=== PATIENT | male | born 1985 | race Caucasian/White ===

== ENCOUNTER 2018-11-16 22:27 | Emergency (ER) | payer SELFPAY ==
[2018-11-16] MEDS ORDERED: CEPHALEXIN 250 MG CAP ONE (23:22)
[2018-11-16] MEDS ORDERED: TETANUS & DIPHTHERIA TOX,ADULT 0.5 ML VIAL ONE (23:23)
[2018-11-16] MEDS ORDERED: LIDOCAINE 1% MPF 30 ML VIAL ONE (23:23)
[2018-11-16] MEDS ORDERED: HYDROCODONE/APAP 7.5/325 MG TAB ONE (23:23)
[2018-11-16] MEDS ORDERED: BUPIVACAINE 0.5% PF 10 ML VIAL ONE (23:23)
--- NOTE | 2018-11-17 00:40 | ER ---
Nurse's Notes [facility] Name: Barrie Arevalo Age: 33 yrs Sex: Male : 1985 Arrival Date: 11/16/2018 Time: 22:29 Bed 5 Private MD: Diagnosis: Laceration with foreign body of right middle finger without damage to nail;Crushing injury of right middle finger Presentation: 11/16 23:00 Presenting complaint: Patient states: Darin from truck fell and crushed 3rd finger on tl2 right hand, appears to have a puncture wound to middle of 3rd right finger, bleeding is controlled. Pt states the finger feels numb. Transition of care: patient was not received from another setting of care. Onset of symptoms was November 16, 2018 at 21:00. Risk Assessment: Do you want to hurt yourself or someone else? Patient reports no desire to harm self or others. Initial Sepsis Screen: Does the patient meet any 2 criteria? No. Patient's initial sepsis screen is negative. Does the patient have a suspected source of infection? No. Patient's initial sepsis screen is negative. Care prior to arrival: None. 23:00 Method Of Arrival: Ambulatory tl2 23:00 Acuity: FABIANA 3 tl2 Triage Assessment: 23:02 General: Appears in no apparent distress. uncomfortable, Behavior is calm, cooperative, tl2 appropriate for age. Pain: Complains of pain in dorsal aspect of middle phalanx of right middle finger, palmar aspect of middle phalanx of right middle finger and palmar aspect of proximal phalanx of right middle finger. Neuro: Level of Consciousness is awake, alert, obeys commands, Oriented to person, place, time, situation. Respiratory: Airway is patent Respiratory effort is even, unlabored, Respiratory pattern is regular, symmetrical. Derm: Skin is pink, warm \T\ dry. Injury Description: Crush injury sustained to palmar aspect of middle phalanx of right middle finger and palmar aspect of proximal phalanx of right middle finger was sustained 1-2 hours ago. Puncture sustained to palmar aspect of middle phalanx of right middle finger and palmar aspect of proximal phalanx of right middle finger is through and through, was sustained 1-2 hours ago. Historical: - Allergies: 23:02 No Known Allergies; tl2 - Home Meds: 23:02 None [Active]; tl2 - PMHx: 23:02 None; tl2 - PSHx: 23:02 None; tl2 - Immunization history:: Adult Immunizations up to date, Last tetanus immunization: < 5 years ago. - Social history:: Smoking status: Patient uses tobacco products, smokes one pack cigarettes per day. - Ebola Screening: : No symptoms or risks identified at this time. Screenin:05 Abuse screen: Denies threats or abuse. Nutritional screening: No deficits noted. tl2 Tuberculosis screening: No symptoms or risk factors identified. Fall Risk None identified. Assessment: 23:05 General: see triage assessment. tl2 11/17 00:00 Reassessment: Patient appears in no apparent distress at this time. Patient and/or tl2 family updated on plan of care and expected duration. Pain level reassessed. Patient is alert, oriented x 3, equal unlabored respirations, skin warm/dry/pink. 01:05 Reassessment: Patient appears in no apparent distress at this time. Patient and/or tl2 family updated on plan of care and expected duration. Pain level reassessed. Patient is alert, oriented x 3, equal unlabored respirations, skin warm/dry/pink. pt verbalized understanding of discharge instructions, need for follow up, wound care and prescription usage. Vital Signs: 11/16 23:02 BP 135 / 99; Pulse 85; Resp 18; Temp 97.7(O); Pulse Ox 100% on R/A; Weight 99.79 kg; tl2 Height 5 ft. 11 in. (180.34 cm); Pain 8/10; 23:02 Body Mass Index 30.68 (99.79 kg, 180.34 cm) tl2 ED Course: 22:29 Patient arrived in ED. es 22:33 Rainer Martin PA is PHCP. cp 22:33 Wellington Amos MD is Attending Physician. cp 22:51 XRAY Hand RIGHT 3 View In Process Unspecified. EDMS 23:01 Triage completed. tl2 23:02 Arm band placed on right wrist. tl2 23:05 Jania Garcia, KEY is Primary Nurse. tl2 23:05 Patient has correct armband on for positive identification. Bed in low position. Call tl2 light in reach. Side rails up X 1. 11/17 00:06 Assist provider with laceration repair on palmar aspect of proximal phalanx of right tl2 middle finger that was 2.5 cm. or less using sutures. Set up tray. Performed by Rainer UGALDE Dressed with Neosporin, Patient tolerated well. 01:05 Patient did not have IV access during this emergency room visit. Dressings: tube gauze tl2 and finger splint. Administered Medications: 11/16 23:23 Drug: Tetanus-Diphtheria Toxoid Adult 0.5 ml {Pc Analyst: [employer]. Exp: tl2 09/03/2020. Lot #: [id number]. } Route: IM; Site: right deltoid; 11/17 01:08 Follow up: Response: No adverse reaction tl2 11/16 23:23 Drug: Lidocaine (1 %) 5 ml Volume: 20 ml; Route: Infiltration; tl2 23:23 Drug: Marcaine (0.5 %) 5 ml Volume: 10 ml; Route: Infiltration; tl2 23:23 Drug: KeFLEX 500 mg Route: PO; tl2 11/17 01:08 Follow up: Response: No adverse reaction tl2 11/16 23:24 Drug: Hydrocodone-Acetaminophen (7.5 mg-325 mg) 1 tabs Route: PO; tl2 11/17 00:20 Follow up: Response: No adverse reaction; Pain is decreased tl2 Outcome: 00:39 Discharge ordered by MD. cabrera 01:05 Discharged to home ambulatory, with family. tl2 01:05 Condition: stable 01:05 Discharge instructions given to patient, family, Instructed on discharge instructions, follow up and referral plans. medication usage, wound care, Demonstrated understanding of instructions, follow-up care, medications, wound care, Prescriptions given X 3. 01:09 Patient left the ED. tl2 Signatures: Dispatcher [employer] Bethany Saez Corey, PA PA cp Knox, Taylor, RN RN tl2
--- NOTE | 2018-11-17 00:40 | EDPHYS ---
Physician Documentation [facility] Name: Barrie Arevalo Age: 33 yrs Sex: Male : 1985 Arrival Date: 11/16/2018 Time: 22:29 Bed 5 Private MD: ED Physician Wellington Amos HPI: 11/16 22:45 This 33 yrs old Male presents to ER via Ambulatory with complaints of hand cp crushed under truck. 22:45 The patient or guardian reports injury, a laceration, irregular, dirty, pain, swelling, cp tenderness. The complaints affect the right middle finger. Context: resulted from a crush injury, car fell from [place]. Onset: The symptoms/episode began/occurred just prior to arrival. Associated signs and symptoms: Pertinent positives: decreased sensation distally, Pertinent negatives: cyanosis distally. Historical: - Allergies: 23:02 No Known Allergies; tl2 - Home Meds: 23:02 None [Active]; tl2 - PMHx: 23:02 None; tl2 - PSHx: 23:02 None; tl2 - Immunization history:: Adult Immunizations up to date, Last tetanus immunization: < 5 years ago. - Social history:: Smoking status: Patient uses tobacco products, smokes one pack cigarettes per day. - Ebola Screening: : No symptoms or risks identified at this time. ROS: 22:50 Constitutional: Negative for body aches, chills, fever, poor PO intake. cp 22:50 Eyes: Negative for injury, pain, redness, and discharge. cp 22:50 ENT: Negative for drainage from ear(s), ear pain, sore throat, difficulty swallowing, difficulty handling secretions. 22:50 Cardiovascular: Negative for chest pain. 22:50 Respiratory: Negative for cough, shortness of breath, wheezing. 22:50 Abdomen/GI: Negative for abdominal pain. 22:50 MS/extremity: Positive for injury or acute deformity, pain, paresthesias, swelling, tenderness, of the right middle finger, Negative for decreased range of motion. 22:50 Skin: Positive for laceration(s), of the right middle finger. 22:50 All other systems are negative. Exam: 23:00 Constitutional: The patient appears in no acute distress, alert, awake, well developed, cp well nourished. 23:00 Head/Face: Normocephalic, atraumatic. cp 23:00 Eyes: Periorbital structures: appear normal, Conjunctiva: normal, Lids and lashes: appear normal, bilaterally. 23:00 ENT: External ear(s): are unremarkable, Nose: is normal, Mouth: is normal, Posterior pharynx: is normal, airway is patent. 23:00 Chest/axilla: Inspection: normal. 23:00 Cardiovascular: Rate: normal. 23:00 Respiratory: the patient does not display signs of respiratory distress, Respirations: normal, no use of accessory muscles, no retractions, no splinting, no tachypnea. 23:00 Abdomen/GI: Inspection: abdomen appears normal. 23:00 Musculoskeletal/extremity: Extremities: grossly normal except: noted in the right middle finger: pain, swelling, tenderness, ROM: full active range of motion, in the right middle finger, Perfusion: the extremity is normally perfused throughout, Sensation intact. Tendon exam: specific tendon testing normal through active and passive range of motion 23:00 Skin: injury, laceration(s), the wound is approximately 3 cm(s), of the middle phalanx richey side right middle finger, the second wound is approximately 1 cm(s), of the dorsal side middle phalanx right middle finger, that can be described as irregular, jagged, with mild bleeding. Vital Signs: 23:02 BP 135 / 99; Pulse 85; Resp 18; Temp 97.7(O); Pulse Ox 100% on R/A; Weight 99.79 kg; tl2 Height 5 ft. 11 in. (180.34 cm); Pain 8/10; 23:02 Body Mass Index 30.68 (99.79 kg, 180.34 cm) tl2 Laceration: 11/17 00:45 Wound Repair of 3cm ( 1.2in ) subcutaneous laceration to palmar aspect of middle cp phalanx of right middle finger. Irregularly shaped.. Distal neuro/vascular/tendon intact. Anesthesia: Digital block administered with 6 mls of Lido/Marcaine. Wound prep: Extensive cleansing by nurse by me, Wound irrigation by me, Wound explored moderately. Skin closed with 6 4-0 Prolene using interrupted sutures and sterile technique. Dressed with Bacitracin, 4x4's, finger splint applied. Patient tolerated well. 00:45 Wound Repair of 1cm ( 0.4in ) subcutaneous laceration to dorsal aspect of middle cp phalanx of right middle finger. Linear shaped.. Distal neuro/vascular/tendon intact. Wound prep: Moderate cleansing by nurse by me, Wound irrigation by me. Skin closed with 2 4-0 Prolene using interrupted sutures and sterile technique. Dressed with Bacitracin, 4x4's. Patient tolerated well. MDM: 11/16 22:34 Patient medically screened. 23:00 Differential diagnosis: dislocation, open fracture, closed fracture, contusion, cp amputation. 11/17 00:38 Data reviewed: vital signs, nurses notes, radiologic studies, plain films, and as a cp result, I will discharge patient. 00:38 Test interpretation: by ED physician or midlevel provider: plain radiologic studies, cp xrays of right hand negative for fracture. Counseling: I had a detailed discussion with the patient and/or guardian regarding: the historical points, exam findings, and any diagnostic results supporting the discharge/admit diagnosis, radiology results, the need for outpatient follow up, a family practitioner, to return to the emergency department if symptoms worsen or persist or if there are any questions or concerns that arise at home. Response to treatment: the patient's symptoms have markedly improved after treatment, and as a result, I will discharge patient. 00:38 ED course: VSS. Pain improved, wound cleaned and closed as noted. Will discharge to home for continued monitoring. 11/16 22:37 Order name: XRAY Hand RIGHT 3 View 11/16 22:37 Order name: Dressing - Wound; Complete Time: 23:01 11/16 22:37 Order name: Gloves, Sterile; Complete Time: 23:01 11/16 22:37 Order name: Setup Suture Tray; Complete Time: 23:01 11/16 22:53 Order name: Wound Care: please cleand and irrigate hand wound; Complete Time: 23:21 cp 11/17 00:10 Order name: Wound dressing: tube guaze; Complete Time: 00:24 cp 11/17 00:10 Order name: Splint - Finger; Complete Time: 00:24 cp Administered Medications: 11/16 23:23 Drug: Tetanus-Diphtheria Toxoid Adult 0.5 ml {Beauty Therapist: [employer]!. Exp: tl2 09/03/2020. Lot #: [id number]. } Route: IM; Site: right deltoid; 11/17 01:08 Follow up: Response: No adverse reaction 2 11/16 23:23 Drug: Lidocaine (1 %) 5 ml Volume: 20 ml; Route: Infiltration; tl2 23:23 Drug: Marcaine (0.5 %) 5 ml Volume: 10 ml; Route: Infiltration; tl2 23:23 Drug: KeFLEX 500 mg Route: PO; 2 11/17 01:08 Follow up: Response: No adverse reaction 2 11/16 23:24 Drug: Hydrocodone-Acetaminophen (7.5 mg-325 mg) 1 tabs Route: PO; 2 11/17 00:20 Follow up: Response: No adverse reaction; Pain is decreased tl2 Disposition: 11/17/18 00:39 Discharged to Home. Impression: Laceration with foreign body of right middle finger without damage to nail, Crushing injury of right middle finger. - Condition is Stable. - Discharge Instructions: Laceration Care, Adult, Crush Injury of the Hand. - Prescriptions for Ibuprofen 800 mg Oral Tablet - take 1 tablet by ORAL route every 8 hours As needed take with food; 30 tablet. Keflex 500 mg Oral Capsule - take 1 capsule by ORAL route every 8 hours for 10 days; 30 capsule. Tramadol 50 mg Oral Tablet - take 1 tablet by ORAL route every 8 hours as needed; 12 tablet. - Medication Reconciliation Form, Thank You Letter, Antibiotic Education, Prescription Opioid Use, Work release form form. - Follow up: Private Physician; When: 2 - 3 days; Reason: Wound Recheck, suture removal in 10-14 days. - Problem is new. - Symptoms have improved. Signatures: Dispatcher [employer] EDMS Rainer Martin PA PA cp Knox, Taylor, RN RN tl2 Corrections: (The following items were deleted from the chart) 01:09 00:39 11/17/2018 00:39 Discharged to Home. Impression: Laceration with foreign body of tl2 right middle finger without damage to nail; Crushing injury of right middle finger. Condition is Stable. Forms are Medication Reconciliation Form, Thank You Letter, Antibiotic Education, Prescription Opioid Use. Follow up: Private Physician; When: 2 - 3 days; Reason: Wound Recheck, suture removal in 10-14 days. Problem is new. Symptoms have improved. cp
--- NOTE | 2018-11-17 07:49 | RAD REPORT ---
EXAM DESCRIPTION: RAD - Hand Right 3 View - 11/16/2018 10:51 pm CLINICAL HISTORY: Right hand pain status post injury FINDINGS: Old fifth metacarpal fracture. No acute fracture or dislocation seen
== END 2018-11-17 01:09 | disposition home or self-care (01) ==
LOC: ER 22:27
PROC: 0JQJ0ZZ Repair Right Hand Subcutaneous Tissue and Fascia, Open Approach (ICD-10-PCS; principal; 2018-11-16)
DX: S61.212A Laceration without foreign body of right middle finger without damage to nail, initial encounter (principal); W20.8XXA Other cause of strike by thrown, projected or falling object, initial encounter; Z23 Encounter for immunization
CPT/HCPCS: 90471; 90714; 99284